=== PATIENT | male | born 1955 | race Caucasian/White ===

== ENCOUNTER 2022-06-09 21:33 | Inpatient (IN) | payer MEDICARE, OTHER, SELFPAY ==
[2022-06-09] VITALS (7 sets, daily range): BP systolic 102–106; BP diastolic 53–89; PULSE 68–193; RESP 18–21; TEMP 36.4–36.8; O2SAT 94–100; BMI 28.2; BMI 29.2
--- NOTE | 2022-06-09 | IR_ITS ---
APPROVED REPORT Patient Location: [facility] Chemist: ROXY Schmitz RT (R) PROCEDURES 1. Left heart catheterization 2. Selective coronary arteriography 3. Left ventriculography INDICATION 1, Ventricular tachycardia, 2. Coronary artery disease SCAI INDICATION Patient is a 67-year-old white male who presented with chest pain and tachycardia. Ventricular tachycardia was noted on the EKG. Progressive symptoms. Secondary to this taken directly to the cardiac catheterization laboratory Informed consent was obtained prior to the procedure. COMPLICATIONS NONE Estimated Blood Loss: LESS THAN 10 ML TECHNIQUE One percent lidocaine was used to anesthetize the right groin. The right femoral artery was accessed via the Seldinger technique. A 6-Spanish sheath was placed in the right femoral artery. The JL-4 and JR-4 catheter was also used to perform left heart catheterization left ventriculogram and selective coronary angiogram. At the end of the procedure the patient was transferred to the post-op holding area in stable condition for arterial sheath removal. ANGIOGRAPHIC RESULTS The left main artery Left main coronary artery angiographically normal The left anterior descending artery Had a stent in its proximal portion. Mild calcification. Stent was free of disease. Smooth 20 to 30% mid stenosis. Normal flow to the distal vessel The circumflex artery Moderate in size with smooth 20% mid stenosis. Normal flow into the distal vessel The right coronary artery Large and dominant. The right coronary artery had mild calcification in the proximal vessel. Smooth 20% proximal stenosis. 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 Normal flow into the posterior descending artery and posterior lateral branch The WHITTAKER ventriculogram reveals Normal left ventricular systolic function with an ejection fraction of 60% The left ventricular end-diastolic pressure 8 Right common retrograde femoral arteriogram performed. Sheath placed in the right common femoral artery. Secondary to this an Angio-Seal device was deployed without difficulty IMPRESSION 1. Mild diffuse coronary artery disease 2. Mild diffuse coronary calcification 3. Patent stent in the proximal left anterior descending 4. Normal left ventricular systolic function 5. Normal left ventricular end-diastolic pressure 6. Successful placement of an Angio-Seal device in the right common femoral artery PLAN 1. Patient will continue with aggressive medical therapy. Look for noncardiac causes of chest pain. Patient does have ventricular tachycardia. He is status post ablation. May need further electrophysiological evaluation. At this time, minimal coronary disease. Stent is patent. Left ventricular function normal. We will monitor him on telemetry and adjust medications as tolerated. No intervention needed at this time Electronically signed by : Shadi Dempsey MD 06/09/2022 23:10:41
--- NOTE | 2022-06-09 22:05 | PC.NURSE ---
wallet and watch given to , clothes placed in personal belonging bag and also give to
--- NOTE | 2022-06-09 22:13 | ECG_ITS ---
APPROVED REPORT Exam: Resting ECG HR:148 bpm ECG Measurements Heart Rate 148 AXES QRSd 90 QRS 34 QT 266 T 70 QTc 351 Conclusion Atrial fib with slow response with significant ST depression with runs of Wide-complex tachycardia Ischemia is highly likely UNCONFIRMED REPORT Electronically signed by : Cristo Smith MD 06/12/2022 21:16:04
--- NOTE | 2022-06-09 22:13 | XR_ITS ---
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 Views: 1 view. COMPARISON: No relevant prior studies available. FINDINGS: Lungs: Multiple pads and leads overlying the patient's chest limiting evaluation of underlying structures. No lobar consolidation. Pleural spaces: No pneumothorax. Heart/Mediastinum: No cardiomegaly. Bones/joints: Degenerative changes of the shoulders. IMPRESSION: Limited examination without definite acute findings.
--- NOTE | 2022-06-09 22:24 | PC.NURSE ---
Dr. Garrison spoke to Dr. Ledezma he has accepted patient
[2022-06-09 22:30] LABS: Basophils # 0.1 K/mm3 (0-0.2); Basophils % 0.9 % (0.1-2.0); Eosinophils # 0.3 K/mm3 (0.0-0.4); Eosinophils % 2.6 % (0.1-12.0); Hemoglobin 16.1 g/dL (14.1-18.0); Lymphocytes # 2.6 K/mm3 (0.7-4.5); Lymphocytes % 22.1 % (10-50); Mean Corpuscular HGB Conc 34.2 g/dL (31.8-35.4); Mean Corpuscular Hemoglobin 29.7 pg (27.0-31.2); Mean Corpuscular Volume 86.7 fl (80-94); Monocytes # 0.9 K/mm3 (0.1-1.0); Monocytes % 7.6 % (1.7-9.3); Neutrophils % 66.8 % (37.0-80.0); Platelet Count 298 K/mm3 (142-424); Red Blood Count 5.42 M/mm3 (4.60-6.20); Red Cell Distribution Width 13.2 % (11.5-17.5); White Blood Count 11.9 K/mm3 (4.8-10.8)
[2022-06-09 22:34] LABS: Alanine Aminotransferase 25 U/L (12-78); Albumin Level 4.4 g/dl (3.5-5.0); Alkaline Phosphatase 71 U/L (38-126); Anion Gap 15.9 mEq/L (5-15); Aspartate Amino Transferase 33 U/L (17-59); Bilirubin,Indirect 0.6 mg/dL (0.0-0.9); Bilirubin,Total 0.6 mg/dl (0.2-1.3); Bilirubin,Unconjugated 0.8 mg/dL (0.0-1.1); Blood Urea Nitrogen 26 mg/dl (9-20); Calcium 10.2 mg/dl (8.4-10.2); Carbon Dioxide 23 mmol/L (22.0-30.0); Chloride 102 mmol/L (98-107); Creatinine Clearance Estimated 64 mL/min (50-200); Estimated Glomerular Filt Rate 55 ml/min (>60); GFR (African American) 67 ML/MIN (>60); Glucose 123 mg/dl (74-100); Magnesium 2.1 mg/dl (1.6-2.3); Potassium 3.9 mmoL/L (3.5-5.1); Sodium 137 mmol/L (136-145); Total Protein,Serum 7.3 g/dl (6.3-8.2)
[2022-06-09 22:50] LABS: Troponin I < 0.01 ng/ml (0.00-0.034)
--- NOTE | 2022-06-09 22:53 | HMH.EDCP ---
ED Disposition Clinical Impression: Unstable angina pectoris, Ventricular tachycardia Disposition: Admitted As Inpatient Condition on Discharge: Critical - Critical Care Critical Care Time: Yes Attestation: On 06/09/22, the high probability of a clinically significant, sudden or life threatening deterioration of the following system(s) required my full and direct attention, intervention and personal management. The time I documented below is in addition to time spent performing reported procedures but includes the following listed in this critical care notation. Total Critical Care Time: 45 Vital system(s) involved:: Circulatory Failure My critical care processes included: Assessment & monitoring of V/S, Initial and Re-exams, Data Review/Interpretation, Coordinating Care, Medication Orders and management, Documentation Medical Decision Making - Medical Records Medical records reviewed: Yes: I reviewed the patient's medical records. - Hal Inquiry Pt receiving controlled substance: No Vital Signs: 06/09/22 21:33 Temperature 97.7 F Temperature Source Oral Pulse Rate [Right] 193 H Respiratory Rate 21 Blood Pressure [Right Arm] 105/89 L Blood Pressure Mean [Right Arm] 94 Blood Pressure Source [Right Arm] Automatic Cuff 02 Sat by Pulse Oximetry 94 L Oxygen Delivery Method Room Air - Lab Data Lab results reviewed: Yes: I reviewed the patient's lab results. Lab Results 06/09/22 21:45: WBC 11.9 H, RBC 5.42, Hgb 16.1, Hct 47.0, MCV 86.7, MCH 29.7, MCHC 34.2, RDW 13.2, Plt Count 298, MPV 8.0, Neut % (Auto) 66.8, Lymph % (Auto) 22.1, [place] % (Auto) 7.6, Eos % (Auto) 2.6, Baso % (Auto) 0.9, Neut # (Auto) 8.0 H, Lymph # (Auto) 2.6, [place] # (Auto) 0.9, Eos # (Auto) 0.3, Baso # (Auto) 0.1 06/09/22 21:45: Sodium 137, Potassium 3.9, Chloride 102, Carbon Dioxide 23, Anion Gap 15.9 H, BUN 26 H, Creatinine 1.30 H, Estimated Creat Clear 64, Estimated GFR 55 L, Est GFR ( Amer) 67, Glucose 123 H, Calcium 10.2, Magnesium 2.1, Total Bilirubin 0.6, Direct Bilirubin 0.0, Conjugated Bilirubin 0.0, Indirect Bilirubin 0.6, Unconjugated Bilirubin 0.8, AST 33, ALT 25, Alkaline Phosphatase 71, Troponin I < 0.01, Total Protein 7.3, Albumin 4.4 Result diagrams: 06/09/22 21:45 06/09/22 21:45 Orders (Tests/Meds): ED MEDICATIONS Generic Name Dose Route Start Last Admin Trade Name Freq PRN Reason Stop Dose Admin Diphenhydramine HCl 50 mg 06/09/22 22:22 Diphenhydramine 50mg/Ml Vial IV 06/09/22 22:23 ONCE ONE Fentanyl Citrate 25 mcg 06/09/22 22:22 Fentanyl 100mcg/2ml Vial IV 06/10/22 22:22 Q3MINP PRN Moderate to Severe Pain Fentanyl Citrate 50 mcg 06/09/22 22:22 Fentanyl 100mcg/2ml Vial IV 06/10/22 22:22 Q3MINP PRN Moderate to Severe Pain Fentanyl Citrate 25 mcg 06/09/22 22:22 Fentanyl 250mcg/5ml Vial IV 06/10/22 22:22 Q3MINP PRN Moderate to Severe Pain Fentanyl Citrate 50 mcg 06/09/22 22:22 Fentanyl 250mcg/5ml Vial IV 06/10/22 22:22 Q3MINP PRN Moderate to Severe Pain Flumazenil 0.2 mg 06/09/22 22:22 Flumazenil 0.1mg/Ml 5ml Vial IV 06/09/22 23:00 NEEDED PRN Sedation Heparin Sodium (Porcine) 10,000 unit 06/09/22 22:22 Heparin 1,000 Units/Ml 10ml Vial ([facility]) IV 06/10/22 02:22 NEEDED PRN [facility] Heparin Sodium/Sodium Chloride 3,000 unit 06/09/22 22:22 Heparin 1,000 Units/500ml Ns ([facility]) IV 06/09/22 22:23 ONCE ONE Sodium Chloride 1,000 mls @ 25 mls/hr 06/09/22 22:30 Sod Chloride 0.9% 500ml Bag IV 06/10/22 22:22 .Q25H JAMES Lidocaine HCl 20 ml 06/09/22 22:22 Lidocaine 1% 5ml Pf Vial IJ 06/09/22 22:23 ONCE ONE Lidocaine HCl 20 ml 06/09/22 22:22 Lidocaine 1% 10ml Mdv IJ 06/09/22 22:23 ONCE ONE Midazolam HCl 1 mg 06/09/22 22:22 Midazolam 2mg/2ml Vial IV 06/10/22 22:22 Q3MINP PRN Sedation Midazolam HCl 1 mg 06/09/22 22:22 Midazo
[2022-06-09 23:20] LABS: CATHL Activated Clotting Time 238 SEC (74-125)
[2022-06-09 23:28] LABS: Coronavirus 19, PCR Not Detected (NotDetected); Influenza A, PCR Not Detected (NotDetected); Influenza B, PCR Not Detected (NotDetected)
--- NOTE | 2022-06-09 23:42 | PC.NURSE ---
patient up to floor via stretcher @ this time.
[2022-06-10] VITALS (17 sets, daily range): BP systolic 95–124; BP diastolic 67–87; PULSE 60–94; RESP 14–17; TEMP 36.4–36.9; O2SAT 94–98
--- NOTE | 2022-06-10 01:01 | PC.NURSE ---
Pt uses [facility] pharmacy [address] [place] [address]
[2022-06-10 01:55] LABS: Troponin I 0.05 ng/ml (0.00-0.034)
--- NOTE | 2022-06-10 04:00 | PC.NURSE ---
(R) femoral cath site is C/D/I. Pt denies any discomfort. He states he feels better. Amiodarone gtt decreased to 16.7 ml/hr. HR low 60s at this time. NSR with PVC's at times. BP stable 100/76. Pt remains on RA. at bedside. Call light within reach.
[2022-06-10 04:32] LABS: Basophils % 0.3 % (0.1-2.0); Eosinophils # 0.2 K/mm3 (0.0-0.4); Eosinophils % 1.9 % (0.1-12.0); Hematocrit 41.7 % (42.0-52.0); Hemoglobin 14.6 g/dL (14.1-18.0); Lymphocytes # 0.9 K/mm3 (0.7-4.5); Lymphocytes % 10.8 % (10-50); Mean Corpuscular HGB Conc 34.9 g/dL (31.8-35.4); Mean Corpuscular Hemoglobin 30.2 pg (27.0-31.2); Mean Corpuscular Volume 86.4 fl (80-94); Mean Platelet Volume 7.2 fl (7.4-10.4); Monocytes # 0.5 K/mm3 (0.1-1.0); Monocytes % 5.4 % (1.7-9.3); Neutrophils # 6.9 K/mm3 (1.8-7.8); Neutrophils % 81.6 % (37.0-80.0); Platelet Count 216 K/mm3 (142-424); Red Blood Count 4.83 M/mm3 (4.60-6.20); White Blood Count 8.5 K/mm3 (4.8-10.8)
[2022-06-10 04:38] LABS: Chloride 108 mmol/L (98-107); Potassium 4.3 mmoL/L (3.5-5.1); Sodium 138 mmol/L (136-145)
[2022-06-10 04:41] LABS: Anion Gap 9.3 mEq/L (5-15); Blood Urea Nitrogen 23 mg/dl (9-20); Calcium 8.7 mg/dl (8.4-10.2); Carbon Dioxide 25 mmol/L (22.0-30.0); Creatinine Clearance Estimated 75 mL/min (50-200); Estimated Glomerular Filt Rate 67 ml/min (>60); GFR (African American) 81 ML/MIN (>60); Glucose 132 mg/dl (74-100)
[2022-06-10 04:47] LABS: Magnesium 1.7 mg/dl (1.6-2.3)
[2022-06-10 04:54] LABS: Troponin I 0.07 ng/ml (0.00-0.034)
--- NOTE | 2022-06-10 06:49 | PC.NURSE ---
MD Ledezma updated on pt condition. HR low 60s. Continue amiodarone gtt at this time.Amiodarone gtt is currently infusing @ 16.7 ml/hr. will be in to assess this AM. VSS. Pt denies any discomfort at this time. Call light within reach. at bedside.
--- NOTE | 2022-06-10 12:09 | HMH.HPDC ---
General - General Admission date:: 06/09/22 Discharge date: 06/10/22 *Admission Date: 06/09/22 *Chief complaint: chest pain, dizziness *History of present illness: Mr. Westfall is a 67-year-old white male with a history of coronary artery disease with a stent in his LAD. He also saw history of paroxysmal atrial fibrillation and underwent an ablation procedure about 3 months ago. He is currently on Eliquis. He is from [place] and was attending a wedding in [place] last evening. The venue was outside and he was quite hot and had consumed 3 alcoholic beverages when he began having chest pain, dizziness, nausea, and became diaphoretic and he was brought to the emergency room. He was found be having runs of V. tach, started on amiodarone drip. Cardiology was consulted and arrangements made for emergent cath. [facility] History Medical History: Reports:: Atherosclerotic Heart Disease, Atrial Fibrillation, Cancer (skin), Hyperlipidemia, Hypertension *Have you ever received a pneumonia vaccine?: No *Have you received a flu vaccine this season?: No Other Surgeries: Yes: Cardiac Catheterization, Coronary Stent, Hernia Repair, Other (Coronary ablation) - *Social History Smoking Status: Never smoker Alcohol Intake: current Alcohol Intake Frequency:: holidays/special occasions only *Occupational Status:: retired *Travel in the last 8 weeks: Inside the [facility] Family Hx:: Unable to obtain Review of Systems - Constitutional Denies body ache(s), Denies chills, Denies fatigue - Eyes Denies change in vision - ENT Denies hearing loss, Denies nasal congestion - *Cardiovascular Reports other (See HPI) - *Respiratory Denies chest congestion, Denies cough, Denies shortness of breath - *Gastrointestinal Denies abdominal pain, Denies change in bowel habits - *Genitourinary Denies difficulty urinating - *Musculoskeletal Denies joint pain, Denies joint swelling - Integumentary/Breasts Denies change in skin color - *Neurologic Denies localized weakness, Denies seizure-like activity Exam Vital signs and Labs for Last 24 Hours: Temp Pulse Resp BP Pulse Ox 98.5 F 63 17 117/81 96 06/10/22 07:48 06/10/22 08:15 06/10/22 08:00 06/10/22 08:15 06/10/22 08:15 Laboratory Results - last 24 hr 06/09/22 21:45: WBC 11.9 H, RBC 5.42, Hgb 16.1, Hct 47.0, MCV 86.7, MCH 29.7, MCHC 34.2, RDW 13.2, Plt Count 298, MPV 8.0, Neut % (Auto) 66.8, Lymph % (Auto) 22.1, [place] % (Auto) 7.6, Eos % (Auto) 2.6, Baso % (Auto) 0.9, Neut # (Auto) 8.0 H, Lymph # (Auto) 2.6, [place] # (Auto) 0.9, Eos # (Auto) 0.3, Baso # (Auto) 0.1 06/09/22 21:45: Sodium 137, Potassium 3.9, Chloride 102, Carbon Dioxide 23, Anion Gap 15.9 H, BUN 26 H, Creatinine 1.30 H, Estimated Creat Clear 64, Estimated GFR 55 L, Est GFR ( Amer) 67, Glucose 123 H, Calcium 10.2, Magnesium 2.1, Total Bilirubin 0.6, Direct Bilirubin 0.0, Conjugated Bilirubin 0.0, Indirect Bilirubin 0.6, Unconjugated Bilirubin 0.8, AST 33, ALT 25, Alkaline Phosphatase 71, Troponin I < 0.01, Total Protein 7.3, Albumin 4.4 06/09/22 21:55: SARS-CoV-2 (PCR) Not detected, Influenza A Untype (PCR) Not detected, Influenza Type B (PCR) Not detected 06/09/22 22:50: Activated Clotting Time 238 H* 06/10/22 01:20: Troponin I 0.05 H 06/10/22 04:20: WBC 8.5 D, RBC 4.83, Hgb 14.6, Hct 41.7 L, MCV 86.4, MCH 30.2, MCHC 34.9, RDW 13.0, Plt Count 216 D, MPV 7.2 L, Neut % (Auto) 81.6 H, Lymph % (Auto) 10.8, [place] % (Auto) 5.4, Eos % (Auto) 1.9, Baso % (Auto) 0.3, Neut # (Auto) 6.9, Lymph # (Auto) 0.9, [place] # (Auto) 0.5, Eos # (Auto) 0.2, Baso # (Auto) 0.0 06/10/22 04:20: Sodium 138, Potassium 4.3, Chloride 108 H, Carbon Dioxide 25, Anion Gap 9.3, BUN 23 H, Creatinine 1.10, Estimated Creat Clear 75, Estimated GFR 67, Est GFR ( Amer) 81 D, Glucose 132 H, Calcium 8.7, Magnesium 1.7 D, Troponin I 0.07 H I & O for Last 24 hours: Intake & Output 06/08/22 06/09/22 06/10/22 06/11/22 11:59 11:59 11:59 11:59 Intake
--- NOTE | 2022-06-11 14:31 | CARE MANAGER ---
Spoke with patient for follow-up phone interview, patient states that he is great and has no concerns Mr. Westfall has already spoke to his MD and has a follow-up appointment in [place].
== END 2022-06-10 09:44 | disposition home or self-care (01) | DRG 287 ==
LOC: ER 22:06 → 2ND 22:31 → CATHLAB 22:45 → 2ND 23:16
PROVIDERS: Internal Medicine Cardiovascular Disease; Admitting Provider Family Medicine; Emergency Provider Emergency Medicine; Visit Provider Family Medicine
PROC: 4A023N7 Measurement of Cardiac Sampling and Pressure, Left Heart, Percutaneous Approach (ICD-10-PCS; principal; 2022-06-09 22:15)
DX: I25.110 Atherosclerotic heart disease of native coronary artery with unstable angina pectoris (principal); I47.2 Ventricular tachycardia; I48.0 Paroxysmal atrial fibrillation; Z95.5 Presence of coronary angioplasty implant and graft; Z85.828 Personal history of other malignant neoplasm of skin
CPT/HCPCS: 36415; 71045; 80048; 80076; 83735; 84484; 85025; 85347; 93005; 93458; 99152; 99291; C1725; C1760; C1769; C1894; C9803; J0282; J1644; Q9967; U0003; U0005